=== PATIENT | female | born 1945 | race Caucasian/White ===

== ENCOUNTER 2023-08-11 07:57 | Outpatient (CLI) | payer MEDICARE ==
[~2023-08-11 07:57] MED LIST: ASPI-611 PO; CA C1TAB69 PO; CALC-1215 PO; FENO134C4 PO; LISI20TA28 PO; METF500T PO; NEOM10SO7 OT; PRAV40TA65 PO
== END 2023-08-11 23:59 | disposition home or self-care (01) ==
LOC: RAD 07:57
PROVIDERS: ATTEND Family Medicine
DX: E21.3 Hyperparathyroidism, unspecified (principal)
CPT/HCPCS: 78014; A9516

== ENCOUNTER 2024-04-01 08:08 | Emergency (ER) | payer MEDICARE ==
[~2024-04-01] VITALS: Ht 162.6 cm; Wt 70.3 kg
[2024-04-01] MEDS: LIDOcaine 1% W/epiNEPHrine 1:100,000 20ml vial SQ ONE (08:42)
[2024-04-01] MEDS: DOXYCYCLINE 100MG CAPSULE PO STA (09:22)
[2024-04-01] MEDS ORDERED: HYDR-3965 PO (09:42)
[2024-04-01] MEDS ORDERED: DOXY-460 PO (09:42)
[2024-04-01 10:56] VITALS: BP 125/82; PULSE 86; RESP 18; TEMP 98.6; O2SAT 99
== END 2024-04-01 10:58 | disposition home or self-care (01) ==
LOC: ER 08:10
DX: L02.214 Cutaneous abscess of groin (principal); E11.42 Type 2 diabetes mellitus with diabetic polyneuropathy; E78.00 Pure hypercholesterolemia, unspecified; Z90.49 Acquired absence of other specified parts of digestive tract; Z90.710 Acquired absence of both cervix and uterus; Z88.0 Allergy status to penicillin; Z88.2 Allergy status to sulfonamides; Z88.8 Allergy status to other drugs, medicaments and biological substances; Z79.84 Long term (current) use of oral hypoglycemic drugs; Z79.899 Other long term (current) drug therapy
CPT/HCPCS: 10060; 99283; A6266; Z7610

== ENCOUNTER 2024-10-06 11:47 | Outpatient (CLI) | payer MEDICARE ==
--- NOTE | 2024-10-06 13:58 | RADIOLOGY REPORT ---
CLINICAL HISTORY: INTERNAL DERANGEMENT OF LEFT KNEE COMPARISON: None TECHNIQUE: Multisequence multiplanar MRI images of the left knee were obtained without contrast. FINDINGS: Cruciate ligaments: ACL and PCL are intact. Extensor mechanism: Quadriceps mechanism and patellar tendon are intact. Mild edema and trace fluid i n the prepatellar and superficial infrapatellar bursae. Mild edema in the posterior inferior aspect o f Hoffa's fat pad Collateral ligaments: Medial and lateral collateral ligaments are intact and otherwise unremarkable. Menisci: Horizontal tear in the body of the lateral meniscus extending from the body / posterior horn junction to the body / anterior horn junction with extension of the tear to the tibial articular callum face. Tear of the posterior horn/posterior root junction of the medial meniscus, appears to be obliqu nahomy oriented, with associated extrusion of the body of the medial meniscus up to 3.5 mm beyond the me dial tibial margin, abutting and mildly displacing the MCL. Cartilage: Moderate chondral fissuring/ fibrillation in the lateral patellar facet with associated avalos bchondral cystic change and milder chondral fissuring in the adjacent portions of the lateral trochle a grade 4 chondromalacia of the medial compartment involving the weight-bearing zone of the medial fe moral condyle, with large areas of full-thickness chondral loss and associated subchondral cystic shauna nge. Chondral fraying and thinning in the lateral compartment. Chondral fissuring/ fibrillation in th e posterior flexion zone of the lateral femoral condyle. Bones: No acute fracture or focal marrow contusion. Moderate arthritic changes in all 3 compartments with joint space narrowing, prominent marginal osteophytes and areas of subchondral cystic change. Joint fluid: Small to moderate joint effusion. Other: Popliteal cyst measures up to 4.7 cm in proximal to distal dimension. IMPRESSION: 1. Tear of the junction of the posterior horn and posterior root attachment of the medial meniscus wi th associated extrusion of the body of the medial meniscus. 2. Horizontal tear in the body of the lateral meniscus. 3. 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 4. Small to moderate joint effusion. 5. Popliteal cyst.
== END 2024-10-06 23:59 | disposition home or self-care (01) ==
LOC: MRI02 11:47
PROVIDERS: ATTEND Family Medicine
DX: S83.242A Other tear of medial meniscus, current injury, left knee, initial encounter (principal); M23.92 Unspecified internal derangement of left knee; X58.XXXA Exposure to other specified factors, initial encounter; Y93.89 Activity, other specified; Y92.89 Other specified places as the place of occurrence of the external cause; Y99.8 Other external cause status
CPT/HCPCS: 73721